=== PATIENT | female | born 2000 | race African-American/Black ===

== ENCOUNTER 2023-01-26 01:30 | Emergency (ER) | payer BC ==
[~2023-01-26] VITALS: Ht 162.6 cm; Wt 61.4 kg
[2023-01-26 01:35] VITALS: BP 114/76
[2023-01-26] MEDS ORDERED: TESSALON P100 MG/CAP PO (02:29)
[2023-01-26] MEDS ORDERED: AMOXICILLIN 8751 TAB PO (02:29)
[2023-01-26 02:43] VITALS: PULSE 96; TEMP 98.9
== END 2023-01-26 02:43 | disposition home or self-care (01) ==
LOC: COL.ER 01:30
DX: H66.91 Otitis media, unspecified, right ear (principal); J02.9 Acute pharyngitis, unspecified; Z28.310 Unvaccinated for COVID-19
CPT/HCPCS: J8540